=== PATIENT | female | born 1955 | race Caucasian/White ===

== ENCOUNTER 2023-03-24 03:04 | Emergency (ER) | payer BC, MEDICARE ==
[~2023-03-24] VITALS: Ht 160 cm; Wt 59.0 kg
[2023-03-24] MEDS ORDERED: ONDANSETRON 4 MG/2 ML VIAL ONE (03:41)
[2023-03-24 03:55] LABS: BASOPHILS % (AUTO) 0.3 % (0.0-2.0); EOSINOPHILS # (AUTO) 0.1 K/uL (0.0-0.7); EOSINOPHILS % (AUTO) 1.2 % (0.0-7.0); HEMOGLOBIN 14.2 g/dL (10.9-14.3); LYMPHOCYTES % (AUTO) 9.9 % (20.5-51.5); MEAN CORPUSCULAR HEMOGLOBIN 30.2 uug (24.7-32.8); MEAN CORPUSCULAR HGB CONC 34 g/dL (32.3-35.6); MEAN CORPUSCULAR VOLUME 89.2 fL (75.5-95.3); MONOCYTES # (AUTO) 0.5 K/uL (0.1-1.30); MONOCYTES % (AUTO) 4.4 % (0.0-11.0); NEUTROPHILS # (AUTO) 8.6 K/uL (1.8-8.9); NEUTROPHILS % (AUTO) 84.2 % (38.5-71.5); PLATELET COUNT (AUTO) 361 K/uL (179-408); RED BLOOD CELL COUNT(AUTO) 4.71 MIL/uL (3.63-4.92); RED CELL DISTRIBUTION WIDTH 13.1 % (12.3-17.7); WHITE BLOOD COUNT (AUTO) 10.2 K/uL (3.8-11.8)
[2023-03-24] MEDS: IV NORMAL SALINE 1000 ML BAG IV ONE (03:55)
[2023-03-24] MEDS: ONDANSETRON 4 MG/2 ML VIAL IV ONE (03:55)
[2023-03-24 04:21] LABS: CALCIUM 9.3 mg/dL (8.5-10.1)
[2023-03-24] MEDS ORDERED: CEphaleXIN 500 MG CAPSULE ONE (04:21)
[2023-03-24 04:23] LABS: *BILIRUBIN,URIN NEGATIVE (NEGATIVE); *BLOOD, URINE 2+ (NEGATIVE); *CLARITY,URINE HAZY (CLEAR); *KETONES,URINE NEGATIVE (NEGATIVE); *PROTEIN,URINE 1+ (NEGATIVE); *UROBILINOGEN,URINE 0.2 E.U./dl (NORMAL); LEUKOCYTE ESTERASE ,URINE TRACE (NEGATIVE); NITRITE, URINE POSITIVE (NEGATIVE); UGLUCOSE TRACE (NEGATIVE)
[2023-03-24 04:23] LABS: DIFFERENTIAL COMMENT 1
[2023-03-24 04:24] LABS: *COLOR,URINE DARK YELLOW (YELLOW)
[2023-03-24] MEDS: CEphaleXIN 500 MG CAPSULE PO ONE (04:26)
[2023-03-24 04:27] LABS: BILIRUBIN,DIRECT 0.1 mg/dL (0.0-0.2); BILIRUBIN,TOTAL 0.5 mg/dL (0.2-1.0); TOTAL PROTEIN, SERUM 7.2 g/dL (6.4-8.2)
[2023-03-24] MEDS ORDERED: CEPH500T PO (05:01)
[2023-03-24 05:03] LABS: BACTERIA,URINE MANY /HPF (NONE SEEN); RBC,URINE 20-50 /HPF (0-3); SQUAMOUS EPITHELIAL CELL,UR FEW /HPF (NONE SEEN)
[2023-03-24 05:22] VITALS: BP 132/72; TEMP 97.8; O2SAT 97
== END 2023-03-24 05:23 | disposition home or self-care (01) ==
LOC: ER 03:11
DX: N39.0 Urinary tract infection, site not specified (principal); R19.7 Diarrhea, unspecified; Z88.0 Allergy status to penicillin; Z88.2 Allergy status to sulfonamides; Z79.899 Other long term (current) drug therapy
CPT/HCPCS: 99283; 96374; 96361; 80076; 80048; 81001; 83690; 85025; 36415; 87040; J2405; J7040; A4663